=== PATIENT | male | born 1950 | race Caucasian/White ===

== ENCOUNTER → 2016-12-03 | Outpatient (CLI) | payer BC ==
[~2016-12-03] MED LIST: CHOL100010 PO; CINA0.42 PO; GLIM2TAB2 PO; METF-384 PO; MULT-506 PO; RAMI5CAP OR; SIMV40TA4 OR
[2016-12-03 11:51] LABS: ESTIMATED AVERAGE GLUCOSE 137 mg/dl; HA1C FLAG Normal (Normal)
== END | disposition home or self-care (01) ==
LOC: C.LABBC 08:23
PROVIDERS: ATTEND Nurse Practitioner Adult Health
DX: Z86.39 Personal history of other endocrine, nutritional and metabolic disease (principal); E11.9 Type 2 diabetes mellitus without complications

== ENCOUNTER → 2017-05-28 | Outpatient (CLI) | payer OTHER ==
[2017-05-28 11:09] LABS: HEMATOCRIT 46.1 % (42-52)
[2017-05-28 11:22] LABS: ALT/SGPT 25 U/L (12-78); AST/SGOT 23 U/L (15-37); BLOOD UREA NITROGEN 14 mg/dl (7-18); BUN/CREATININE RATIO 17.7 (10-20); CALCIUM 9.1 mg/dl (8.5-10.1); CARBON DIOXIDE 29 mmol/L (21-32); CHLORIDE 103 mmol/L (98-107); CHOLESTEROL 126 mg/dl (0-200); CREATININE 0.81 mg/dl (0.60-1.40); GLUCOSE 116 mg/dl (70-99); POTASSIUM 3.9 mmol/L (3.5-5.1); SODIUM 136 mmol/L (136-145)
[2017-05-28 11:26] LABS: ALKALINE PHOSPHATASE 82 U/L (45-117); CHOLESTEROL/HDL RATIO 2.4; HDL CHOLESTEROL 52 mg/dl; LDL CHOLESTEROL CALCULATED 59 mg/dl; TRIGLYCERIDES 73 mg/dl (0-150); VERY LOW DENSITY LIPOPROT CALC 15 mg/dl
[2017-05-28 11:35] LABS: ESTIMATED AVERAGE GLUCOSE 126 mg/dl; HA1C FLAG Normal (Normal)
== END | disposition home or self-care (01) ==
LOC: C.LABBC 07:58
PROVIDERS: ATTEND Internal Medicine
DX: G47.33 Obstructive sleep apnea (adult) (pediatric) (principal); Z11.59 Encounter for screening for other viral diseases; E11.9 Type 2 diabetes mellitus without complications; Z12.5 Encounter for screening for malignant neoplasm of prostate; I10 Essential (primary) hypertension

== ENCOUNTER → 2017-10-07 | Outpatient (CLI) | payer OTHER ==
[2017-10-07 10:20] LABS: HEMOGLOBIN A1C 6.5 % (4.5-5.6)
== END | disposition home or self-care (01) ==
LOC: C.LAB 08:14
PROVIDERS: ATTEND Nurse Practitioner Adult Health
DX: E11.9 Type 2 diabetes mellitus without complications (principal)

== ENCOUNTER → 2018-01-12 | Outpatient (CLI) | payer OTHER ==
[2018-01-12 11:09] LABS: BLOOD UREA NITROGEN 16 mg/dl (7-18); CARBON DIOXIDE 28 mmol/L (21-32); CREATININE 0.96 mg/dl (0.60-1.40); GLUCOSE 127 mg/dl (70-99); POTASSIUM 3.8 mmol/L (3.5-5.1); SODIUM 132 mmol/L (136-145)
[2018-01-12 11:30] LABS: HEMOGLOBIN A1C 6.3 % (4.5-5.6)
[2018-01-12 14:50] LABS: CALCIUM 9.7 mg/dl (8.5-10.1)
== END | disposition home or self-care (01) ==
LOC: C.LABBC 07:44
PROVIDERS: ATTEND Nurse Practitioner Adult Health
DX: Z86.39 Personal history of other endocrine, nutritional and metabolic disease (principal); E11.9 Type 2 diabetes mellitus without complications

== ENCOUNTER → 2018-01-12 | Outpatient (CLI) | payer OTHER | END | disposition home or self-care (01) | LOC: C.LAB 14:56 | PROVIDERS: ATTEND Internal Medicine Pulmonary Disease | DX: J30.9 Allergic rhinitis, unspecified (principal) ==